=== PATIENT | male | born 1985 | race Caucasian/White ===

== ENCOUNTER → 2023-11-26 | Outpatient (CLI) | payer OTHER ==
--- NOTE | 2023-11-26 15:51 | XR ---
EXAMINATION TYPE: XR thoracic spine 4 views, XR lumbar spine 3V DATE OF EXAM: 11/26/2023 COMPARISON: NONE HISTORY: 38-year-old male M54.14, G62.9, M54.5 FINDINGS: Thoracic spine: 12 rib bearing thoracic vertebral bodies. All pedicles are visualized. Mild degenerative disc disease mid to lower thoracic spine. Vertebral body heights are preserved and alignment is maintained. Lumbar spine: 5 lumbar type vertebral bodies though a overgrown appearing L5 transverse processes. 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 Vertebral body heights are preserved and alignment is maintained. IMPRESSION: 1. Thoracic spine: Mild degenerative disc disease mid to lower thoracic spine. No vertebral compressi on collapse or malalignment. 2. Lumbar spine: Moderate degenerative disc disease L4-L5 and L5-S1. Facet arthropathy lower lumbar s pine. No vertebral compression collapse or malalignment. [facility], Workstation: [facility], 11/26/2023 3:49 PM
== END | disposition home or self-care (01) ==
LOC: RADXRMAIN 15:09
PROVIDERS: ATTEND Nurse Practitioner Family
DX: M54.14 Radiculopathy, thoracic region (principal); G62.9 Polyneuropathy, unspecified; M51.34 Other intervertebral disc degeneration, thoracic region; M51.37 Other intervertebral disc degeneration, lumbosacral region; M47.816 Spondylosis without myelopathy or radiculopathy, lumbar region
CPT/HCPCS: 72070; 72100